=== PATIENT | male | born 1995 | race Hispanic/Latino ===

== ENCOUNTER 2023-02-12 11:01 | Emergency (ER) | payer MEDICAID, OTHER ==
[~2023-02-12] VITALS: Ht 177.8 cm; Wt 83.9 kg
[2023-02-12 14:26] LABS: APPEARANCE,URINE CLEAR (CLEAR); BILIRUBIN,URINE NEGATIVE (NEGATIVE); COLOR,URINE YELLOW (YELLOW); GLUCOSE, URINE (UA) NEGATIVE (NEGATIVE); KETONES,URINE NEGATIVE (NEGATIVE); LEUKOCYTE ESTERASE ,URINE NEGATIVE Leu/uL (NEGATIVE); NITRATE,URINE NEGATIVE (NEGATIVE); OCCULT BLOOD,URINE NEGATIVE (NEGATIVE); PH,URINE 5.5 (5.0-8.0); PROTEIN,URINE 10 mg/dL (NEGATIVE); UROBILINOGEN,URINE 0.2 mg/dL (0.2-1.0)
[2023-02-12 14:31] LABS: BACTERIA,URINE RARE /HPF (None Seen); MUCUS,URINE RARE LPF (None Seen); RBC,URINE 0-1 /HPF (0-1); WBC,URINE 0-1 /HPF (0-1); YEAST,URINE BUDDING RARE /HPF (None Seen)
[2023-02-12 14:51] VITALS: BP 127/71
== END 2023-02-12 14:52 | disposition home or self-care (01) ==
LOC: EDH 11:01
DX: N50.82 Scrotal pain (principal)
CPT/HCPCS: 76870; 81001

== ENCOUNTER 2025-01-08 23:39 | Emergency (ER) | payer SELFPAY ==
[~2025-01-08] VITALS: Ht 175.3 cm; Wt 88.0 kg
--- NOTE | 2025-01-08 23:55 | NUR ---
PT REPORTS HE HAD ACHIEVED COMPLETION AFTER SEX AND NOTED THAT HIS TESTICLES LOOKED LIKE THEY HAD "GONE UP INTO HIS BODY" PT STATES HE ATTEMPTED TO HAVE THEM DROP BUT STATES THEY KEPT MOVING UP INTO HIS BODY. PT STATES THE SEX WAS NO MORE VIGOROUS THAN HIS USUAL EFFORT.
--- NOTE | 2025-01-09 01:35 | ERN ---
ED Note History of Present Illness Stated Complaint: TESICULAR PROBLEM Chief Complaint: Testicular Injury/Pain Time Seen by MD: 00:00 Dictation: This is a 29-year-old male who presented to the emergency room with complaints of bilateral testicular retraction all the way up to the inguinal areas and he felt this for the 1st time. No fever chills or rigors. No erythema. No history of any penile discharge lower abdominal pain Temperature 98.1 pulse 134 respiratory rate 18 blood pressure 124/83 with a pulse oximetry of 95%. Allergies: Coded Allergies: No Known Drug Allergies (Unverified Allergy, Unknown, 02/12/23) Past Medical History Past Medical History: No Pertinent History Surgical History: Other Surgical History Other: BILATERAL LEG SX Family History: Negative Review of System Dictation Constitutional: Negative for fever,chills, and weight loss Eyes: Negative for injury, pain,redness, and discharge ENT: Negative for injury,pain or swelling Cardiovascular: Negative for chest pain, palpitations, and edema Respiratory: Negative for shortness of breath, cough, and wheezing, Abdomen/GI: Negative for abdominal pain, nausea, vomiting, diarrhea, and constipation Back: Negative for injury and pain : Negative for injury, bleeding and discharge as described in the history of present illness MS/Extremity: Negative for injury and deformity Skin: Negative for rash, and discoloration Neuro: Negative for headache, weakness, numbness, tingling, and seizure Psych: Negative for suicide ideation, homicidal ideation, and hallucinations Initial Vital Sign VS Vital Signs Date Time Temp Pulse Resp B/P (MAP) Pulse Ox O2 Delivery O2 Flow Rate FiO2 01/08/25 23:41 98.1 134 18 124/83 95 0 Physical Exam Dictation General: awake, alert, NAD appeared generally anxious Head/Face: Normocephalic, atraumatic Eyes: PERRL, EOMI, vision at baseline ENT: oral cavity clear, TMs clear, no signs of infection Neck: Trachea midline, supple, no nuchal rigidity Cardiovascular: RRR, normal S1/S2, No MRGs, no JVD Respiratory: CTAB, no respiratory distress, No rales or wheezes Abdomen: Soft, non-tender, non-distended, normal bowel sounds, no guarding or rebound. -normal scrotal size, testicular size location. No epididymal thickening. No abnormality of scrotal skin Skin: Warm, dry, normal turgor, no rash MS/Extremity: Pulses equal, no cyanosis, neurovascular intact, FROM Neuro: COAx4, GCS 15, strength 5/5, CN 2-12 intact, normal cerebellar exam, normal gait, Psych: Normal behavior, mood, and affect normal Extremities-trace edema without any palpable cords, Homans sign is negative Results (Laboratory/Radiology) Labs Reviewed?: Yes ED Course ED Course Orders Procedure Category Date Status Time Us Scrotum & Contents US 01/09/25 Taken 00:00 Urinalysis Profile LAB 01/09/25 Logged 00:00 Vital Signs Date Time Temp Pulse Resp B/P (MAP) Pulse Ox O2 Delivery O2 Flow Rate FiO2 01/08/25 23:41 98.1 134 18 124/83 95 0 We will perform diagnostic labs, advanced imaging and administer medications according to the patient's complaint. Once the results are available, will review and personally interpreted the labs to rule out any acute life- threatening emergency the trach require immediate intervention and treatment. I will then re-evaluate the patient after treatment and diagnostic exams have return to determine whether the patient requires any further testing, can safely be discharged home or need further admission to hospital for additional treatment and evaluation. Urinalysis was essentially unremarkable. Ultrasound of the scrotum with its contents was also completely normal. I updated the patient on the findings he felt very relieved Medical Decision Making MDM MDM: Differential diagnosis: Undescended testes, testicular torsion, hydrocele, varicocele Rationale: Tests considered and ordered secondary to shared decision making include: Previous outside records reviewed: Old ER visits. Risk of complication and/or morbidity or mortality of patient management: None Medications-Per medication reconciliation Need for hospitalization: Patient does not meet criteria for hospitalization. Need for emergency major/minor surgery: No There are no social concerns with this patient. Prescription drug management Prescriptions will include symptomatic care Patient's prior external medical records from other ER visits were reviewed by me as indicated. Prior testing and results from previous visits were reviewed. Prior tests were taken into account with medical decision making and resource utilization, independent historian/historians were used to obtain complete medical history. I independently interpreted the test that were performed, results were reviewed by me and considered findings on radiology if ordered. Medical management and examination interpretation discussions were had by me with other qualified healthcare professionals as indicated for the patient's care. DX & DISP Disposition: Discharge Departure Impression: Primary Impression: Pain due to retraction of testicle Condition: Stable Additional Instructions: Patient and the caregiver have been informed of all the diagnostic tests and the imaging conducted during the today's visit to the emergency room and has verbalized understanding of the results I have personally reviewed and interpreted all diagnostic exams performed here in the ER today as well as the vital signs documented by the nursing staff. The patient is now being discharged to home and should follow up with the primary care physician or the specialist as directed by the ER staff. Follow-up with primary care provider in 1 to 2 days. Take medications as dire cted here in the emergency room. Okay to continue home medications unless otherwise discussed during your visit in the emergency room today. Return to your nearest emergency room if symptoms worsen or if there is no improvement. Call 911 if you need immediate assistance. Take Tylenol or Motrin [id number] as needed and if no contraindications are present. Increase oral hydration. A wound culture or urine culture was ordered here in the emergency room department please follow-up with primary care provider and advise them to get repeat ports from our facility. If you had any Willy wrap/splints that were applied here, please do not remove them until you see your primary care or specialty. Referrals: SELF,REFERRAL (PCP) DIONI BELLE MD Jan 09, 2025 01:35
[2025-01-09 01:54] VITALS: TEMP 98.3
[2025-01-09] MEDS: hydrALAZine 25MG TABLET PO SCH (02:09)
[2025-01-09 02:39] VITALS: BP 169/97; PULSE 90; RESP 18; O2SAT 98
--- NOTE | 2025-01-09 08:11 | HMCIMG ---
Testicular ultrasound with color-flow Doppler Clinical Information: Trauma Comparison: None Findings: The testes are of normal size and echogenicity. Vascular flow is preserved to both testes- there is no evidence of torsion. There is no evidence of inflammation. No fluid collections are seen. Specifically, there is no hydrocele. The epididymis is unremarkable bilaterally. There is no evidence of varicoceles. Scrotal wall is normal in thickness bilaterally. Impression: Normal exam.
== END 2025-01-09 02:42 | disposition home or self-care (01) ==
LOC: EDH 23:39
DX: N50.812 Left testicular pain (principal); N50.811 Right testicular pain
CPT/HCPCS: 76870; 99284